=== PATIENT | female | born 2000 | race Caucasian/White ===

== ENCOUNTER 2022-04-26 16:20 | Emergency (ER) | payer SELFPAY ==
[2022-04-26 16:28] VITALS: BP 125/67; PULSE 92; RESP 16; TEMP 36.6; O2SAT 100
--- NOTE | 2022-04-26 17:23 | ED.URI ---
HPI - URI/Sore Throat General Chief Complaint: Upper Respiratory Infection Stated Complaint: Sinus Time Seen by Provider: 04/26/22 17:00 Source: patient Mode of arrival: ambulatory Limitations: no limitations History of Present Illness HPI Narrative: Patient is a 22-year-old female that presents with 4 days of cough, nasal congestion, headache, body aches, fatigue, fever and chills. States she took an at-home COVID test that was negative. Still able to eat and drink normally. 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 Related Data Home Medications Medication Instructions Recorded Confirmed No Home Medications 04/26/22 04/26/22 Allergies Allergy/AdvReac Type Severity Reaction Status Date / Time No Known Allergies Allergy Unknown Unverified 04/26/22 17:02 Review of Systems Review of Systems: All systems reviewed & are unremarkable except as noted in HPI and below Constitutional: Constitutional: Reports body ache(s), Reports fever(s), Reports headache(s), Reports malaise and Denies weakness Eyes: Eyes: Denies loss of vision ENT: Denies otalgia, Reports headache(s), Reports nasal congestion, Denies sinus pain and Reports sore throat Cardiovascular: Cardiovascular: Denies chest pain, Denies irregular heart rhythm and Denies dyspnea Respiratory: Respiratory: Reports cough and Denies dyspnea Gastrointestinal: Gastrointestinal: Denies abdominal pain, Denies melena, Denies hematochezia, Denies diarrhea, Denies nausea and Denies vomiting Musculoskeletal: Musculoskeletal: Denies back pain, Denies myalgias and Denies arthralgias Integumentary/Breasts: Skin/Breast: Denies pruritus and Denies rash Neurologic: Denies headache(s), Denies loss of vision and Denies weakness Psychiatric: Psychiatric: Reports no additional psychiatric complaints PMFSH Comments At time of signature, agree with nursing past medical, surgical, social and family history. There is no relevant family history pertinent to the presenting complaint. Exam Const: General: cooperative, healthy appearing, comfortable, no acute distress and well nourished Nutritional Appearance: well nourished Orientation/consciousness: patient oriented x3 Limitations: no limitations HENMT: Head: normal to inspection, normocephalic and atraumatic Ears: external ears normal, TM normal on the right and unable to visualize TM on the left (cerumen impaction) Face/Nose/Sinus: Normal external nose present, normal facial exam, sinuses nontender and face symmetric Face and sinus: normal facial exam, sinuses nontender and face symmetric Mouth: Yes Normal oral and palatal mucosa present, Yes lip normal and Yes moist mucous membranes Teeth and gingiva: dentition normal Throat: posterior oropharynx normal, tonsils normal and uvula midline Eyes: General: appearance normal, both eyes and all related structures Alignment and Position: alignment normal and position normal Periorbital: periorbital findings normal Eyelids: eyelids normal Pupils: Equal, round and reactive pupils present Neck: Neck: normal visual inspection, full ROM and supple Chest: Chest palpation & inspection: normal inspection of the chest and normal palpation of entire chest wall Resp: Effort & Inspection: normal respiratory effort and able to speak in complete sentences Auscultation: clear to auscultation bilaterally, no crackles, no rales, no rhonchi and no wheezes Cardio: Rate: regular rate Rhythm: regular rhythm Heart sounds: S1 normal heart sound present and S2 normal heart sound present GI: Inspection: normal to inspection Skin: General skin exam: normal color and no rashes or lesions noted Neuro: General: patient oriented x3 and moves all extremities Cranial nerves: Yes Equal, round and reactive pupils present Speech: normal speech Gait exam (Neuro): Normal gait present Extrem: General: normal to inspection, full ROM and no edema Psych: Appearance: grossly normal and w
== END 2022-04-26 17:36 | disposition home or self-care (01) ==
PROVIDERS: Emergency Provider Nurse Practitioner Family
DX: J10.1 Influenza due to other identified influenza virus with other respiratory manifestations (principal); H61.20 Impacted cerumen, unspecified ear; Z20.822 Contact with and (suspected) exposure to COVID-19
CPT/HCPCS: 87081; 87426; 87804; 87880; 99203; C9803; G0463

== ENCOUNTER 2022-07-10 19:42 | Emergency (ER) | payer MEDICAID, SELFPAY ==
[2022-07-10 19:44] VITALS: BP 126/81; PULSE 103; RESP 14; TEMP 37.1; O2SAT 99
--- NOTE | 2022-07-10 19:58 | PC.NURSE ---
Patient states that she thinks she is and would like a test to confirm. Patient states she is having cramps, but they are not her normal period cramps. Patient also states that her breasts and nipples are sensitive. Patient reports discharge from her vagina that is not normal. Patient also states she is urinating more. Patient states that her last period was the beginning of last month (Jun, 2022).
--- NOTE | 2022-07-10 21:05 | ED.GENADULT ---
HPI - General Adult General Chief complaint: Unspecified Stated complaint: wants test Time Seen by Provider: 07/10/22 20:07 History of Present Illness HPI narrative: Patient is a 22-year-old female presenting with a positive test. Patient states that her last menstrual period was approximately 31 days ago. States that she has been feeling nauseated and has had breast tenderness so she took a test today. States the first 1 was negative and the second 1 was positive. States her friend and boyfriend advised that she come in to confirm her . She complains of mild suprapubic pain but denies left or right-sided abdominal pain. Denies vaginal bleeding. Denies further complaints. Related Data Allergies Allergy/AdvReac Type Severity Reaction Status Date / Time No Known Allergies Allergy Unknown Unverified 04/26/22 17:02 Review of Systems Review of Systems: All systems reviewed & are unremarkable except as noted in HPI and below Exam Narrative: GENERAL: Well-appearing, well-nourished, and in no acute distress. HEAD: Normocephalic, atraumatic. EYES: PERRLA and EOMI. ENT: Nares clear, no rhinorrhea or epistaxis. Mucous membranes moist. NECK: Supple. CHEST: Clear to auscultation. No respiratory distress. HEART: Regular rate and rhythm ABDOMEN: Soft, nontender, nondistended EXTREMITIES: Normal range of motion. No edema. SKIN: Warm, dry, no rash. NEURO: No focal deficits. Alert and oriented x3. PSYCH: Normal mood and affect. Course Vital Signs Vital signs: Vital Signs Temperature 98.8 F 07/10/22 19:44 Pulse Rate 103 H 07/10/22 19:44 Respiratory Rate 14 07/10/22 19:44 Blood Pressure 126/81 07/10/22 19:44 Pulse Oximetry 99 07/10/22 19:44 Oxygen Delivery Room Air 07/10/22 19:44 Temperature 98.8 F 07/10/22 19:44 Pulse Rate 103 H 07/10/22 19:44 Respiratory Rate 14 07/10/22 19:44 Blood Pressure 126/81 07/10/22 19:44 Pulse Oximetry 99 07/10/22 19:44 Oxygen Delivery Room Air 07/10/22 19:44 Medical Decision Making [facility] Narrative Medical decision making narrative: Patient is a 22-year-old female presenting with concerns of a positive test. Vitals within normal limits. Exam is unremarkable. Abdomen is soft and benign. Plan to check UA, urine . Urine is negative. UA is concerning for UTI. We will treat her with Keflex. Advise close PCP follow-up. Patient is also asking for the number for GI as she states that she was supposed to get a scope done several months ago. States that she recently moved here so she needs a new GI doctor. We will provide this number. Appropriate return precautions given. Patient voiced understanding and is agreeable with plan. Discharged in stable condition. Differential Diagnosis Differential Diagnosis: UTI, early , suprapubic pain Medical Records Medical records reviewed: Yes I reviewed the external patient's medical records. Vital Signs Vital Signs: Vital Signs Temperature 98.8 F 07/10/22 19:44 Pulse Rate 103 H 07/10/22 19:44 Respiratory Rate 14 07/10/22 19:44 Blood Pressure 126/81 07/10/22 19:44 Pulse Oximetry 99 07/10/22 19:44 Oxygen Delivery Room Air 07/10/22 19:44 Temperature 98.8 F 07/10/22 19:44 Pulse Rate 103 H 07/10/22 19:44 Respiratory Rate 14 07/10/22 19:44 Blood Pressure 126/81 07/10/22 19:44 Pulse Oximetry 99 07/10/22 19:44 Oxygen Delivery Room Air 07/10/22 19:44 Lab Data Lab results reviewed: Yes I reviewed the patient's lab results. Labs: Lab Results 07/10/22 Range/Units 21:12 Urine Color Yellow (Yellow) Urine Appearance Cloudy H (Clear) Urine pH 5.0 (5.0-9.0) Ur Specific [place] 1.029 (1.001-1.035) Urine Protein Negative (Negative) mg/dL Urine Glucose (UA) Negative (Negative) mg/dL Urine Ketones Trace H (Negative) mg/dL Ur Blood (Man) Negative (Negative) Urin
[2022-07-10 21:22] LABS: Appearance Urine Cloudy (Clear); Bacteria Urine Rare /hpf; Bilirubin Urine Negative (Negative); Blood Urine Negative (Negative); Color Urine Yellow (Yellow); Glucose Urine UA Negative (Negative); Ketones Urine Trace mg/dL (Negative); Leukocyte Esterase Ur 2+ LEU/UL (Negative); Nitrate Urine Negative (Negative); Non Pathogenic Casts 0-2; Protein Urine Negative (Negative); RBC Urine 0-2 /hpf (0-2); Specific Grav Ur 1.029 (1.001-1.035); Squamous Epithelial Cell Urine Few /hpf (Few); Urobilinogen Urine 0.2 mg/dL (<2.0); WBC Urine 21-50 /hpf
[2022-07-10 21:30] LABS: Add Urine Microscopic? YES; Pregnancy On Board Control Positive; Urine Pregnancy Test Negative
[2022-07-10] MEDS: CEPHALEXIN 500 MG CAPSULE PO (21:39)
== END 2022-07-10 21:56 | disposition home or self-care (01) ==
PROVIDERS: Emergency Provider Emergency Medicine
DX: N39.0 Urinary tract infection, site not specified (principal)
CPT/HCPCS: 81001; 81025; 87086; 87088; 99283; A9270

== ENCOUNTER 2023-01-13 09:51 | Emergency (ER) | payer OTHER, SELFPAY ==
[2023-01-13 10:04] VITALS: BP 117/79; PULSE 93; RESP 16; TEMP 37.5; O2SAT 99
--- NOTE | 2023-01-13 10:26 | ED.ABDPAIN ---
HPI - Abdominal Pain General Chief Complaint: Abdominal Pain Stated Complaint: stomach problems Time Seen by Provider: 01/13/23 10:26 Source: patient, RN notes reviewed and old records reviewed Mode of arrival: ambulatory Limitations: no limitations History of Present Illness HPI narrative: 21-year-old female presents to [facility] with complaints of abdominal pain, nausea vomiting and diarrhea this started yesterday. Patient states is improving today. Patient states came in because work sent her here. Patient denies urinary symptoms. MD elicited complaint: abdominal pain Onset (ago): day(s) (1) Related Data Allergies Allergy/AdvReac Type Severity Reaction Status Date / Time No Known Allergies Allergy Unknown Verified 01/13/23 10:13 Review of Systems Constitutional: Constitutional: Reports no additional constitutional complaints, Denies body ache(s), Denies chills, Denies fever(s) and Denies headache(s) Eyes: Eyes: Reports no additional eye complaints ENT: Reports system reviewed and no additional complaints, except as documented, Denies dizziness and Denies sore throat Cardiovascular: Cardiovascular: Reports no additional cardiovascular complaints Respiratory: Respiratory: Reports no additional respiratory complaints Gastrointestinal: Gastrointestinal: Reports as per HPI, Reports abdominal pain, Reports diarrhea, Reports nausea and Reports vomiting Genitourinary: Genitourinary: Denies abnormal menses, Denies abnormal vaginal bleeding, Denies urinary incontinence, Denies urinary hesitancy, Denies urinary urgency and Denies vaginal discharge Neurologic: Reports system reviewed and no additional complaints, except as documented PMFSH Comments At the time of my signature, I reviewed and agree with the nursing past medical, surgical, social, and family history. There is no relevant family history pertinent to the patient complaint. Exam Const: General: cooperative, healthy appearing, no acute distress and well nourished Nutritional Appearance: well nourished Orientation/consciousness: patient oriented x3 Limitations: no limitations HENMT: Head: normal to inspection and normocephalic Ears: external ears normal, TM's normal bilaterally, mastoids normal and Abnormal EAC present Face/Nose/Sinus: normal facial exam Face and sinus: normal facial exam Mouth: Yes Normal oral and palatal mucosa present, Yes oropharynx normal and Yes moist mucous membranes Throat: posterior oropharynx normal, tonsils normal, uvula midline and no uvular edema Eyes: General: appearance normal, both eyes and all related structures Sclera: sclerae normal Pupils: Equal, round and reactive pupils present Resp: Effort & Inspection: normal respiratory effort, able to speak in complete sentences, no audible wheezes, no cough, no respiratory distress and no retractions Auscultation: clear to auscultation bilaterally, no crackles, no rales, no rhonchi and no wheezes Cardio: Rate: regular rate Rhythm: regular rhythm GI: Inspection: normal to inspection GI Palp: No abdominal tenderness, Yes Soft to palpation, No Tenderness to palpation present (GI), No Guarding due to palpation present (GI), No Rigid due to palpation, Yes No hepatosplenomegaly present and No Rebound tenderness present Auscultation: normal bowel sounds Skin: General skin exam: normal color and no rashes or lesions noted Neuro: General: patient oriented x3 Cranial nerves: Yes Equal, round and reactive pupils present Psych: Appearance: grossly normal Course Course Emergency Course: Some parts of this dictation were generated by voice recognition software and may contain typographical and/or grammatical inaccuracies. Level of Care: Express Care Visit Vital Signs Vital signs: Vital Signs Temperature 99.5 F 01/13/23 10:04 Pulse Rate 93 01/13/23 10:04 Respiratory Rate 16 01/13/23 10:04 Blood Pressure 117/79 01/13/23 10:04 Pulse Oximetry 99 01/13/23 10:04
== END 2023-01-13 10:53 | disposition home or self-care (01) ==
PROVIDERS: Emergency Provider Registered Nurse
DX: K52.9 Noninfective gastroenteritis and colitis, unspecified (principal)
CPT/HCPCS: 81025; 99213; G0463

== ENCOUNTER 2023-05-12 16:57 | Emergency (ER) | payer OTHER, SELFPAY ==
--- NOTE | 2023-05-12 17:52 | ED.FEMALEGU ---
HPI - Female Genitourinary General Chief complaint: Urogenital-Female Stated complaint: vaginal pain Time Seen by Provider: 05/12/23 17:52 Focused HPI: Patient is a 23 y/o female who presents to the ED with c/o vaginal pain. Patient reports having discomfort, burning, and mild itching to her vagina for the last 3 days. She states her vagina feels warm and filled and infected. She denies dysuria, but reports burning in her vaginal region w/o urination. Reports having similar sx's last month and used an OTC yeast treatment with improvement, but states she was unable to afford it this month. Patient has never seen an OBGYN before. She is sexually active, but states she makes her partners get tested before she is involved. Shes denies bumps or genital lesions. Denies vaginal discharge or bleeding. States she is due to begin her normal cycle next week. Denies abdominal pain or back pain. Denies hx of DM. GENERAL: Well-appearing, obese, and in no acute distress. HEAD: Normocephalic, atraumatic. CHEST: Clear to auscultation. ?No respiratory distress. HEART: Regular rate and rhythm.? NEURO: ?Alert and oriented x3. Patient screened in triage and initial orders placed.? ?Additional care and disposition to be based upon?diagnostic testing and treatment. Source: patient Mode of arrival: ambulatory Limitations: no limitations Related Data Allergies Allergy/AdvReac Type Severity Reaction Status Date / Time No Known Allergies Allergy Unknown Verified 05/12/23 20:07 [facility] Past Medical History Medical History (Updated 05/13/23 @ 00:12 by Michelle Velazquez) No active medical problems Social History Social History (Updated 05/12/23 @ 23:22 by Adalgisa Guillen PA-C) Substance use: never Course Vital Signs Vital signs: Vital Signs Temperature 97.9 F 05/12/23 20:01 Pulse Rate 88 05/12/23 20:01 Respiratory Rate 15 05/12/23 20:01 Blood Pressure 130/88 05/12/23 20:01 Pulse Oximetry 100 05/12/23 20:01 Oxygen Delivery Room Air 05/12/23 20:01 Temperature 97.9 F 05/12/23 20:01 Pulse Rate 73 05/12/23 23:25 Respiratory Rate 18 05/12/23 23:25 Blood Pressure 134/88 05/12/23 23:25 Pulse Oximetry 100 05/12/23 23:25 Oxygen Delivery Room Air 05/12/23 20:01 MDM - Female Genitourinary MDM Narrative Medical decision making narrative: MSE by ROSA in triage. Lab Data Labs: Lab Results 05/12/23 05/12/23 Range/Units 17:42 20:55 Urine Color Dark yellow (Yellow) Urine Appearance Clear (Clear) Urine pH 7.0 (5.0-9.0) Ur Specific [place] 1.029 (1.001-1.035) Urine Protein Trace (Negative) mg/dL Urine Glucose (UA) Negative (Negative) mg/dL Urine Ketones Trace H (Negative) mg/dL Ur Blood (Man) Negative (Negative) Urine Nitrate Negative (Negative) Urine Bilirubin Negative (Negative) Urine Urobilinogen 1.0 (<2.0) mg/dL Leukocyte Esterase Rfl 1+ H (Negative) PK/UL Urine RBC 0-2 (0-2) /hpf Urine WBC 6-10 H (0-3) /hpf Ur Squamous Epith Cells Few (Few) /hpf Urine Bacteria Rare /hpf Urine Casts 0-2 C. trachomatis (PCR) Not detected (NOT DETECTE) N. gonorrhoeae (PCR) Not detected (NOT DETECTE) T. vaginalis (PCR) Detected A (NOT DETECTE) Bact Vaginosis Panel Pending G Bedside Result Negative Reference Range: Negative Discharge Plan Discharge Clinical Impression: Trichomoniasis, Vulvovaginal candidiasis, Acute UTI Patient Disposition: Home, Self-Care Condition: Stable Instructions: Antibiotic Form, Sexually Transmitted Diseases (ED), Trichomoniasis (ED), Urinary Tract Infection in Women (ED), Yeast Infection (ED) Additional Instructions: Return to the ER if you experience fever, abdominal pain with nausea and vomiting, you are unable to keep down liquids or solids, pain or burning with urination, blood in the urine or any ot
[2023-05-12 18:09] LABS: Appearance Urine Clear (Clear); Bacteria Urine Rare /hpf; Bilirubin Urine Negative (Negative); Blood Urine Negative (Negative); Color Urine Dark Yellow (Yellow); Glucose Urine UA Negative (Negative); Ketones Urine Trace mg/dL (Negative); Leukocyte Esterase Ur 1+ LEU/UL (Negative); Nitrate Urine Negative (Negative); Non Pathogenic Casts 0-2; Protein Urine Trace mg/dL (Negative); RBC Urine 0-2 /hpf (0-2); Specific Grav Ur 1.029 (1.001-1.035); Squamous Epithelial Cell Urine Few /hpf (Few)
[2023-05-12 18:10] LABS: Add Urine Microscopic? YES
[2023-05-12 20:01] VITALS: BP 130/88; PULSE 88; RESP 15; TEMP 36.6; O2SAT 100
--- NOTE | 2023-05-12 20:56 | ED.FEMALEGU ---
HPI - Female Genitourinary General Chief complaint: Urogenital-Female Stated complaint: vaginal pain Time Seen by Provider: 05/12/23 17:52 Source: patient Mode of arrival: ambulatory Limitations: no limitations History of Present Illness HPI Narrative: This is a 23-year-old female that presents to the emergency department for vaginal irritation. Ongoing over the last couple of days. Reports abnormal discharge and itching. Reports mild dysuria. Denies fevers, vomiting, or hematuria. Related Data Allergies Allergy/AdvReac Type Severity Reaction Status Date / Time No Known Allergies Allergy Unknown Verified 05/12/23 20:07 Review of Systems Review of Systems: CONSTITUTIONAL: Denies fever GASTROINTESTINAL: Denies abdominal pain, nausea, vomiting GENITOURINARY: Reports dysuria. Denies hematuria. SKIN: Reports itching. Denies rash All systems reviewed & are unremarkable except as noted in HPI and below PMFSH Past Medical History Medical History (Updated 05/12/23 @ 23:22 by Adalgisa Guillen PA-C) No active medical problems Social History Social History (Updated 05/12/23 @ 23:22 by Adalgisa Guillen PA-C) Substance use: never Exam Narrative: GENERAL: Well-appearing, well-nourished, and in no acute distress. HEAD: Normocephalic, atraumatic. EYES: EOMI. EXTREMITIES: Normal range of motion. No edema. SKIN: Warm, dry, no rash. NEURO: No focal deficits. Alert and oriented x3. PSYCH: Normal mood and affect PELVIC: Redness and white discharge in the vulva. Moderate white discharge in the vaginal vault Course Course Emergency Course: Patient updated on her workup and agrees with plan of care Vital Signs Vital signs: Vital Signs Temperature 97.9 F 05/12/23 20:01 Pulse Rate 88 05/12/23 20:01 Respiratory Rate 15 05/12/23 20:01 Blood Pressure 130/88 05/12/23 20:01 Pulse Oximetry 100 05/12/23 20:01 Oxygen Delivery Room Air 05/12/23 20:01 Temperature 97.9 F 05/12/23 20:01 Pulse Rate 88 05/12/23 20:01 Respiratory Rate 15 05/12/23 20:01 Blood Pressure 130/88 05/12/23 20:01 Pulse Oximetry 100 05/12/23 20:01 Oxygen Delivery Room Air 05/12/23 20:01 MDM - Female Genitourinary MDM Narrative Medical decision making narrative: Patient presents the emergency department for vulvovaginal irritation. She is afebrile and nontoxic appearing. UA with 6-10 white blood cells and 1+ leuk esterase. Patient will be started on Macrobid. Chlamydia, gonorrhea are negative. Trichomonas is positive. Patient will be started on metronidazole. test negative. Patient was also treated today for presumptive vulvovaginal candidiasis. Patient was updated on her workup and agrees with plan of care. Instructed to follow-up with gynecology. She was given warnings to return to the ER Differential Diagnosis Differential diagnosis: Likely urinary tract infection, bacterial vaginosis, trichomoniasis, vaginitis and other (vulvovaginal candidiasis) Lab Data Attestation: I reviewed the patient's lab results. Labs: Lab Results 05/12/23 05/12/23 Range/Units 17:42 20:55 Urine Color Dark yellow (Yellow) Urine Appearance Clear (Clear) Urine pH 7.0 (5.0-9.0) Ur Specific [place] 1.029 (1.001-1.035) Urine Protein Trace (Negative) mg/dL Urine Glucose (UA) Negative (Negative) mg/dL Urine Ketones Trace H (Negative) mg/dL Ur Blood (Man) Negative (Negative) Urine Nitrate Negative (Negative) Urine Bilirubin Negative (Negative) Urine Urobilinogen 1.0 (<2.0) mg/dL Leukocyte Esterase Rfl 1+ H (Negative) PK/UL Urine RBC 0-2 (0-2) /hpf Urine WBC 6-10 H (0-3) /hpf Ur Squamous Epith Cells Few (Few) /hpf Urine Bacteria Rare /hpf Urine Casts 0-2 C. trachomatis (PCR) Not detected (NOT DETECTE) N. gonorrhoeae (PCR) Not detected (NOT DETECTE) T. vaginalis (PCR) Detected A (NOT DETECTE) Bact Vaginosis Pa
[2023-05-12] MEDS: FLUCONAZOLE 150 MG TABLET PO (21:09)
[2023-05-12 22:33] LABS: Chlamydia trachomatis NOT DETECTED (NOT DETECTE); Neisseria gonorrhoeae PCR NOT DETECTED (NOT DETECTE)
[2023-05-12 22:43] LABS: Trichomonas Vag PCR DETECTED (NOT DETECTE)
[2023-05-12 23:25] VITALS: BP 134/88; PULSE 73; RESP 18; O2SAT 100
[2023-05-16 17:02] LABS: Bacterial Vaginosis Positive (Negative)
== END 2023-05-12 23:26 | disposition home or self-care (01) ==
PROVIDERS: Physician Assistant; Student in an Organized Health Care Education/Training Program; Emergency Provider Physician Assistant
DX: B37.31 Acute candidiasis of vulva and vagina (principal); A59.01 Trichomonal vulvovaginitis; N39.0 Urinary tract infection, site not specified
CPT/HCPCS: 81001; 81025; 81513; 87070; 87086; 87491; 87591; 87661; 99284; A9270

== ENCOUNTER 2023-07-23 12:36 | Emergency (ER) | payer OTHER, SELFPAY ==
--- NOTE | 2023-07-23 12:43 | ED.FEMALEGU ---
HPI - Female Genitourinary General Chief complaint: Urogenital-Female Stated complaint: test Time Seen by Provider: 07/23/23 12:56 Source: patient and RN notes reviewed Mode of arrival: ambulatory Limitations: no limitations History of Present Illness HPI Narrative: 23-year-old female presents concern for late menstrual period. She reports her last period was June 15. She denies any vomiting, dysuria, frequency, urgency ache. She reports suprapubic pressure. MD elicited complaint: UTI Related Data Home Medications Medication Instructions Recorded Confirmed No Home Medications 07/23/23 07/23/23 Allergies Allergy/AdvReac Type Severity Reaction Status Date / Time No Known Allergies Allergy Unknown Verified 07/23/23 12:45 Review of Systems Review of Systems: CONSTITUTIONAL: Denies malaise, chills, sweats, or fever. CARDIOVASCULAR: Denies chest pain, palpitations, or edema. RESPIRATORY: Denies cough or dyspnea. GASTROINTESTINAL: Denies abdominal pain, nausea, vomiting, diarrhea GENITOURINARY: Denies dysuria, frequency, urgency. Reports suprapubic pressure. Denies flank pain or hematuria. SKIN: Denies rash or itching. MUSCULOSKELETAL: Denies back pain or myalgia. All systems reviewed & are unremarkable except as noted in HPI and below PMFSH Past Medical History Medical History (Updated 07/23/23 @ 13:06 by Deisy Marcos NP) No active medical problems Social History Social History (Updated 05/12/23 @ 23:22 by Adalgisa Guillen PA-C) Substance use: never Comments At time of signature, agree with nursing past medical, surgical, social and family history. There is no relevant family history pertinent to the presenting complaint Exam Narrative: GENERAL: Well-appearing, well-nourished, and in no acute distress. HEAD: Normocephalic. EYES: PERRLA, conjunctivae clear. NECK: Supple. No lymphadenopathy CHEST: Clear to auscultation. No respiratory distress. HEART: Regular rate and rhythm. SKIN: Warm, dry, no rash. NEURO: Alert and oriented x3. PSYCH: Normal mood and affect Course Course Emergency Course: Patient is aware of diagnosis, understands and agrees to treatment plan. Anticipatory guidance given. Patient agrees to follow-up as directed and is aware of reasons to seek care at the emergency department. Portions of this record may have been created with voice recognition software Level of Care: Express Care Visit Vital Signs Vital signs: Reviewed. MDM - Female Genitourinary MDM Narrative Medical decision making narrative: Exam findings and UA show no acute concerns or changes; patient is non-toxic appearing and is in no distress. Patient is appropriate for outpatient treatment and follow-up. Differential Diagnosis Differential diagnosis: Likely urinary tract infection and cystitis Critical Care Time Critical Care Time Critical Care Time: No Discharge Plan Discharge Clinical Impression: Positive urine test Patient Disposition: Home, Self-Care Condition: Stable Instructions: (ED) Additional Instructions: 1) Please follow-up with your doctor in the next 1-2 days. 2) If you have any urgent concerns please go to the ER. 3) Please take vitamin. 4) Please read and follow information included in discharge instructions. Prescriptions: No Action No Home Medications Follow-up/Referrals: PHYSICIAN,[employer]ATOR [Primary Care Provider] - Time of Disposition: 13:06
[2023-07-23 12:52] VITALS: BP 111/79; PULSE 88; RESP 16; TEMP 37.3; O2SAT 99
== END 2023-07-23 13:15 | disposition home or self-care (01) ==
PROVIDERS: Emergency Provider Nurse Practitioner
DX: Z32.01 Encounter for pregnancy test, result positive (principal)
CPT/HCPCS: 81025; 99212; G0463